=== PATIENT | female | born 1990 | race Caucasian/White ===

== ENCOUNTER 2018-09-27 19:40 | Inpatient (IN) | payer OTHER ==
[2018-09-27] MEDS ORDERED: ELECTROLYTE-148 SOLN 500 ML IV ONE ×2 (21:00→22:00)
[2018-09-27 21:05] LABS: BASO % 1.2 % (0-2.0); EOS % 0.8 % (0-4.5); HEMATOCRIT 34.9 % (32.4-45.2); HEMOGLOBIN 12.4 GM/dL (10.7-15.3); LYMPH % 20.4 % (8-40); MCH 30.6 pg (25.7-33.7); MCHC 35.7 g/dl (32.0-36.0); MEAN CELL VOLUME 85.8 fl (80-96); MEAN PLT VOLUME 8.6 fl (7.5-11.1); MONO % 4.8 % (3.8-10.2); NEUT % 72.8 % (42.8-82.8); PLATELET COUNT 181 K/MM3 (134-434); RBC 4.06 M/mm3 (3.60-5.2)
[2018-09-27 21:13] LABS: RETICULOCYTES 1.48 % (0.5-1.5)
[2018-09-27 21:22] LABS: INR 0.86 (0.83-1.09); PROTHROMBIN TIME (PATIENT) 10.1 SEC (9.7-13.0)
[2018-09-27 21:25] LABS: ACTIVATED PTT 29.1 SECONDS (25.2-36.5)
[2018-09-27 21:29] LABS: BLOOD UREA NITROGEN 10.9 mg/dL (7-18); CALCIUM 7.9 mg/dL (8.5-10.1); CREATININE 0.6 mg/dL (0.55-1.3); URIC ACID 5.2 mg/dL (2.6-7.2)
[2018-09-27 21:46] LABS: EPI CELLS 17.1 /HPF (0-5/HPF); HYALINE CASTS 20 /lpf (0-8); URINE APPEARANCE CLOUDY; URINE BACTERIA 952.7 /hpf (NEGATIVE); URINE BILIRUBIN NEGATIVE (NEGATIVE); URINE COLOR YELLOW; URINE GLUCOSE (UA) NEGATIVE (NEGATIVE); URINE KETONE NEGATIVE (NEGATIVE); URINE LEUK ESTERASE 2+ (NEGATIVE); URINE NITRITE NEGATIVE (NEGATIVE); URINE PROTEIN 3+ (NEGATIVE); URINE RBC 7 /hpf (0-4); URINE UROBILINOGEN 0.2 mg/dL (0.2-1.0); URINE WBC 95 /hpf (0-5)
[2018-09-27] MEDS ORDERED: FENTANYL/BUPIVACAINE/NS/PF - PCEA - 50 ML DISP.SYRIN EP ONE (22:05)
[2018-09-27] MEDS ORDERED: NALOXONE HCL 0.4 MG/ML VIAL IVPUSH PRN (22:50)
[2018-09-27] MEDS ORDERED: FENTANYL/BUPIVACAINE/NS/PF - PCEA - 50 ML DISP.SYRIN EP SCH (23:00)
[2018-09-27 23:04] LABS: GAMMA GLUTAMYL TRANSPEPTIDASE 18 U/L (5-85); SGOT/AST 28 U/L (15-37); SGPT/ALT 33 U/L (13-61)
[2018-09-27 23:27] VITALS: BMI 26.7
[2018-09-28] MEDS ORDERED: MAGNESIUM 4GM/H20 - 4 GM/100 ML IVPB IVPB ONE ×2 (00:15→00:25)
[2018-09-28] MEDS ORDERED: OXYTOCIN 20 UNITS in 0.9% NS 20 UNIT/1,000 ML INFUS.BAG IV ONE (00:59)
[2018-09-28] MEDS ORDERED: MAGNESIUM SULFATE 20GM/500ML - 20 GM/500 ML INFUS.BAG IVPB SCH (01:00)
[2018-09-28] MEDS ORDERED: OXYTOCIN 20 UNITS in 0.9% NS 20 UNIT/1,000 ML INFUS.BAG IV SCH (01:10)
[2018-09-28] MEDS ORDERED: LABETALOL HCL 200 MG TABLET (FP) ONE (01:23)
--- NOTE | 2018-09-28 01:29 | HP ---
Past Medical History - Admission Chief Complaint: Labor pain History of Present Illness: 27 yo @ 36.4 weeks gestation, EDC 10/21/18, presents to L&D c/o labor pain. Upon admission she had advanced cervical dilation. History Source: Patient Limitations to Obtaining History: No Limitations - Past Medical History ...: 3 ...Para: 1 ...Term: 1 ...Spon : 1 ...EDC by Sono: 10/21/18 - Past Surgical History Past Surgical History: Yes: None Hx Myomectomy: No Hx Transabdominal Cerclage: No - Smoking History Smoking history: Never smoked Aproximately how many cigarettes per day: 0 - Alcohol/Substance Use Hx Alcohol Use: No History of Substance Use: reports: None - Social History History of Recent Travel: No Home Medications - Allergies Allergies/Adverse Reactions: Allergies Allergy/AdvReac Type Severity Reaction Status Date / Time shellfish derived Allergy Intermediate Rash Verified 09/19/18 06:19 - Home Medications Home Medications: Ambulatory Orders Pnv No.95/Ferrous Fum/Folic AC [ Vitamin Tablet] 1 each PO DAILY Review of Systems - Review of Systems Constitutional: reports: No Symptoms Eyes: reports: No Symptoms HENT: reports: No Symptoms Neck: reports: No Symptoms Cardiovascular: reports: No Symptoms Respiratory: reports: No Symptoms Gastrointestinal: reports: No Symptoms Genitourinary: reports: Pain Breasts: reports: No Symptoms Reported Musculoskeletal: reports: No Symptoms Integumentary: reports: No Symptoms Neurological: reports: No Symptoms Endocrine: reports: No Symptoms Hematology/Lymphatic: reports: No Symptoms Psychiatric: reports: No Symptoms Pain Intensity: 7 Physical Exam - Maternity Vital Signs: Vital Signs Temperature 98.3 F 09/27/18 23:19 Pulse Rate 88 09/28/18 00:15 Respiratory Rate 20 09/28/18 00:15 Blood Pressure 133/87 09/28/18 00:15 O2 Sat by Pulse Oximetry (%) 100 09/28/18 00:15 Constitutional: Yes: Well Nourished Eyes: Yes: Conjunctiva Clear HENT: Yes: Atraumatic Neck: Yes: Supple Cardiovascular: Yes: Regular Rate and Rhythm Lungs: Clear to auscultation Breast(s): Yes: WNL - Abdominal Exam/OB Number of Fetuses: Single Presentation: Vertex Intensity: Moderate - Vaginal Exam/OB Dilatation (cm): 3 Effacement (%): 80 Amniotic Membrane Status: Intact Presentation: Vertex/Position Station: -2 - Physical Exam ...Motor Strength: WNL Psychiatric: Yes: Alert, Oriented - Labs Lab Results: CBC, BMP 09/27/18 20:45 09/27/18 20:45 Problem List - Problems (1) contractions Code(s): O47.9 - FALSE LABOR, UNSPECIFIED Assessment/Plan labor 36 weeks gestation -induced hypertension Admit to L&D Analgesia as needed Anticipate
[2018-09-28] MEDS ORDERED: ELECTROLYTE-148 SOLN 1,000 ML IV SCH (01:30)
[2018-09-28] MEDS ORDERED: BISACODYL 10 MG SUPP.RECT RC PRN (01:33)
[2018-09-28] MEDS ORDERED: BENZOCAINE 28 GM HEMORRHOIDAL OINTMENT TP PRN (01:33)
[2018-09-28] MEDS ORDERED: WITCH HAZEL 50% (TUCKS) 40 PAD/JAR PAD TP PRN (01:33)
[2018-09-28] MEDS ORDERED: METHYLERGONOVINE MALEATE 0.2 MG/1 ML AMP IM PRN (01:33)
[2018-09-28] MEDS ORDERED: IBUPROFEN 600 MG TABLET (FP) PO PRN (01:33)
[2018-09-28] MEDS ORDERED: BENZOCAINE 20% 57 GM BOTTLE TP PRN (01:33)
[2018-09-28] MEDS ORDERED: LABETALOL HCL 200 MG TABLET (FP) PO ONE (01:36)
--- NOTE | 2018-09-28 01:36 | PN ---
Delivery - Delivery Vaginal Delivery: Spontaneous Type of Anesthesia: Epidural, None Episiotomy/Laceration: None EBL (cc): 250 Delivery, Single - Stages of Labor Date 1st Stage Initiatied: 09/27/18 Time 1st Stage Initiated: 02:00 Date 2nd Stage Initiated: 09/28/18 Time 2nd Stage Initiated: 00:55 Date of Delivery: 09/28/18 Time of Delivery: 01:06 Time Placenta Delivered: 01:10 - Condition of Infant Enrollment Nurse/Shipyard Painter Apprentice Present: No Gender: Male Position: Right, OA Total Hours ROM (Hrs/Mins): 25mins. - Feeding Plan Initial Plan: Elected not to breastfeed exclusively throughout hospitalization Remarks - Remarks Remarks: Normal spontaneous vaginal delivery of a boy over intact perineum. Nose / Oropharynx suctioned @ perineum. Cord clamped and cut. Baby handed to nurse. Placenta expelled spontaneously intact. Mother in stable condition.
[2018-09-28] MEDS ORDERED: OXYTOCIN 20 UNITS in 0.9% NS 1,000 ML IV SCH ×2 (01:45→02:49)
[2018-09-28] MEDS: ACETAMINOPHEN 325 MG TABLET (FP) PO PRN ×4 (02:58→18:32)
[2018-09-28] MEDS: FERROUS SO4 325 MG TABLET (FP) PO SCH ×2 (08:19→18:32)
[2018-09-28] MEDS ORDERED: LABETALOL HCL 100 MG TABLET (FP) PO SCH (10:00)
[2018-09-28] MEDS ORDERED: DIPHTH,PERTUSS(ACELL),TET 0.5 ML DISP.SYRIN IM ONE (10:00)
[2018-09-28] MEDS: PRENATAL VITAMINS W/ FOLIC ACID TABLET (FP) PO SCH (10:07)
[2018-09-28] MEDS: LABETALOL HCL 200 MG TABLET (FP) PO SCH (21:28)
[2018-09-29 08:04] LABS: BASO % 0.5 % (0-2.0); EOS % 0.8 % (0-4.5); HEMATOCRIT 35.8 % (32.4-45.2); HEMOGLOBIN 12.2 GM/dL (10.7-15.3); LYMPH % 25.1 % (8-40); MCH 29.8 pg (25.7-33.7); MCHC 34.1 g/dl (32.0-36.0); MEAN CELL VOLUME 87.4 fl (80-96); MEAN PLT VOLUME 8.7 fl (7.5-11.1); MONO % 4.5 % (3.8-10.2); NEUT % 69.1 % (42.8-82.8); RDW 14.3 % (11.6-15.6)
[2018-09-29 08:38] LABS: ALBUMIN 2.1 g/dl (3.4-5.0); BILIRUBIN,TOTAL 0.2 mg/dL (0.2-1); BLOOD UREA NITROGEN 6.4 mg/dL (7-18); CALCIUM 8.4 mg/dL (8.5-10.1); CREATININE 0.5 mg/dL (0.55-1.3); POTASSIUM 4.2 mmol/L (3.5-5.1); TOT PROT 5.1 g/dl (6.4-8.2); URIC ACID 4.3 mg/dL (2.6-7.2)
--- NOTE | 2018-09-29 08:40 | PN ---
Post Note - Post Date of Delivery: 09/28/18 Post Day: 1 Vital Signs: Vital Signs - 24 hr 09/28/18 09/28/18 09/28/18 09:00 10:00 11:30 Temperature 98.3 F Pulse Rate 77 81 82 Respiratory 20 20 20 Rate Blood Pressure 132/83 142/99 138/96 09/28/18 09/28/18 09/28/18 14:00 16:00 18:00 Temperature 98.4 F 98.2 F Pulse Rate 74 73 77 Respiratory 20 20 20 Rate Blood Pressure 154/87 140/93 132/86 09/28/18 09/29/18 09/29/18 21:20 02:00 06:00 Temperature 97.9 F Pulse Rate 72 85 90 Respiratory 18 18 18 Rate Blood Pressure 149/100 136/88 137/96 Labs: Laboratory Results - last 24 hr 09/27/18 09/27/18 09/29/18 20:45 20:45 07:30 Haptoglobin 111 Sodium 139 Potassium 4.2 Chloride 107 Carbon Dioxide 24 Anion Gap 8 BUN 6.4 L Creatinine 0.5 L Est GFR (CKD-EPI)AfAm 155.90 Est GFR (CKD-EPI)NonAf 134.52 Random Glucose 70 L Uric Acid 4.3 Calcium 8.4 L Total Bilirubin 0.2 AST 22 ALT 23 Alkaline Phosphatase 134 H Total Protein 5.1 L Albumin 2.1 L RPR Titer Nonreactive - Subjective Subjective: No Complaints - Objective Afebrile: Yes Breast: Not engorged Abdomen: Soft, Non-tender Uterus: Fundus firm Vagina: Scant lochia Extremities: Non-tender - Assessment/Plan (1) Status post normal vaginal delivery Assessment: S/P Normal Plan: Routine Care
[2018-09-29 08:57] LABS: PLATELET COUNT 183 K/MM3 (134-434)
[2018-09-29] MEDS: FERROUS SO4 325 MG TABLET (FP) PO SCH ×2 (09:15→18:29)
[2018-09-29] MEDS: PRENATAL VITAMINS W/ FOLIC ACID TABLET (FP) PO SCH (09:29)
[2018-09-29] MEDS: ACETAMINOPHEN 325 MG TABLET (FP) PO PRN ×2 (09:29→20:08)
[2018-09-29] MEDS: LABETALOL HCL 200 MG TABLET (FP) PO SCH ×2 (09:30→21:46)
[2018-09-29 10:25] LABS: RATIO URIN PROTEIN/URIN CREAT 0.4 MG/DL
[2018-09-29] MEDS ORDERED: SENNOSIDES/DOCUSATE COMBO (SENNA PLUS) TABLET (UD) PO PRN (22:00)
[2018-09-30] MEDS: FERROUS SO4 325 MG TABLET (FP) PO SCH (09:01)
[2018-09-30] MEDS: ACETAMINOPHEN 325 MG TABLET (FP) PO PRN (09:01)
[2018-09-30] MEDS: PRENATAL VITAMINS W/ FOLIC ACID TABLET (FP) PO SCH (09:01)
[2018-09-30 09:17] VITALS: BP 154/85; PULSE 73; TEMP 98
--- NOTE | 2018-09-30 09:54 | DS ---
Physical Exam-CLERK TRAVEL RESERVATIONS Vital Signs: Vital Signs Temperature 98.0 F 09/30/18 09:14 Pulse Rate 73 09/30/18 09:14 Respiratory Rate 18 09/30/18 09:14 Blood Pressure 154/85 09/30/18 09:14 O2 Sat by Pulse Oximetry (%) 100 09/28/18 02:05 Constitutional: No: No Distress Eyes: Yes: Conjunctiva Clear HENT: Yes: Atraumatic Neck: Yes: Supple Cardiovascular: Yes: Regular Rate and Rhythm Respiratory: Yes: Regular Gastrointestinal: Yes: Normal Bowel Sounds ...Rectal Exam: Yes: WNL Renal/: Yes: WNL Pelvis: Yes: WNL External Genitalia: Yes: Normal Vaginal Exam: Yes: Normal Cervix: Yes: Normal Uterus: Yes: Tender ....Post : Yes: Uterus firm, Moderate lochia rubra Breast(s): Yes: WNL Musculoskeletal: Yes: WNL Extremities: Yes: WNL Neurological: Yes: Alert, Oriented ...Motor Strength: WNL Psychiatric: Yes: Alert, Oriented Labs: CBC, BMP 09/29/18 07:30 09/29/18 07:30 Delivery - Delivery Vaginal Delivery: Spontaneous Type of Anesthesia: Epidural Episiotomy/Laceration: None EBL (cc): 250 Delivery, Single - Stages of Labor Date 1st Stage Initiatied: 09/27/18 Time 1st Stage Initiated: 02:00 Date 2nd Stage Initiated: 09/28/18 Time 2nd Stage Initiated: 00:55 Date of Delivery: 09/28/18 Time of Delivery: 01:06 Time Placenta Delivered: 01:10 - Condition of Development Editor/Back Seam Stitcher Present: No Infant Gender: Male Weight: 6 lb 3 oz Position: Right, OA Total Hours ROM (Hrs/Mins): 25mins. - 1 Minute Total Score: 9 5 Minutes Total Score: 9 - Feeding Plan Initial Plan: Elected not to breastfeed exclusively throughout hospitalization Discharge Summary Reason For Visit: LABOR Current Active Problems contractions (Acute) Procedures: Principal: Normal spontaneous vaginal delivery Hospital Course: Patient had -induced Hypertension ( PIH ) for which she received Labetalol. Condition: Good - Instructions Diet, Activity, Other Instructions: Regular diet No douching, no sexual intercourse x 6 weeks. F/U with MD in 2 weeks for repeat blood pressure. Continue Labetalol Disposition: HOME - Home Medications Comprehensive Discharge Medication List: Ambulatory Orders Pnv No.95/Ferrous Fum/Folic AC [ Vitamin Tablet] 1 each PO DAILY
[2018-09-30] MEDS ORDERED: ACETAMINOPHEN 325 MG TABLET (FP) PO ONE (10:00)
[2018-09-30] MEDS ORDERED: oxyCODONE HCL 5 MG TABLET PO ONE (10:00)
[2018-09-30] MEDS: LABETALOL HCL 200 MG TABLET (FP) PO SCH (10:06)
== END 2018-09-30 13:30 | disposition home or self-care (01) | DRG 560 ==
LOC: JDEL 19:40 → JLDR 21:50 → J3W 09-28 04:44
PROVIDERS: ADMIT Obstetrics & Gynecology; ATTEND Obstetrics & Gynecology
PROC: 10E0XZZ Delivery of Products of Conception, External Approach (ICD-10-PCS; principal; 2018-09-28)
DX: O60.14X0 Preterm labor third trimester with preterm delivery third trimester, not applicable or unspecified (principal); O13.4 Gestational [pregnancy-induced] hypertension without significant proteinuria, complicating childbirth; Z3A.36 36 weeks gestation of pregnancy; Z37.0 Single live birth
CPT/HCPCS: 36415; 59409; 80048; 80053; 81003; 82570; 82977; 83010; 84156; 84450; 84460; 84550; 85025; 85032; 85044; 85610; 85730; 86593; 86850; 86900; 86901; 90715